=== PATIENT | male | born 1980 | race Caucasian/White ===

== ENCOUNTER 2021-11-25 18:53 | Emergency (ER) | payer OTHER ==
[~2021-11-25 18:53] MED LIST: FLOMAX0.4 MG PO; LODINE CAP 300300 MG PO; ZOFRAN ODT 4 MG4 MG PO
== END 2021-11-25 20:30 | disposition home or self-care (01) ==
LOC: ER1 18:53
DX: U07.1 COVID-19 (principal); J40 Bronchitis, not specified as acute or chronic
CPT/HCPCS: 71045; 87081; 87880; 93005; 99284